=== PATIENT | male | born 1995 | race Caucasian/White ===

== ENCOUNTER 2016-12-03 10:42 | Outpatient (CLI) | payer OTHER | END 2016-12-03 10:43 | disposition critical access hospital (66) | LOC: EMS 10:42 | PROVIDERS: ATTEND Surgery | DX: R07.89 Other chest pain (principal); M79.621 Pain in right upper arm; T63.441A Toxic effect of venom of bees, accidental (unintentional), initial encounter | CPT/HCPCS: A0425; A0429 ==

== ENCOUNTER 2016-12-03 11:00 | Emergency (ER) | payer OTHER ==
[2016-12-03 11:06] VITALS: BP 134/70
[2016-12-03] MEDS ORDERED: CETIRIZINE 10 MG TABLET PO STA (11:14)
[2016-12-03] MEDS ORDERED: DEXAMETHASONE 10 MG/ML VIAL PO STA (11:14)
[2016-12-03] MEDS ORDERED: DEXAMETHASONE 10 MG/ML VIAL ONE (11:30)
[2016-12-03] MEDS ORDERED: CETIRIZINE 10 MG TABLET ONE (11:30)
--- NOTE | 2016-12-03 12:40 | ED Physician Documentation ---
History of Present Illness - Stated complaint Stated Complaint: BEE STING - Chief complaint Chief Complaint: Ext Problem - Additonal information Additional information: hx from pt hx anaphylaxis 2/2 bee stings stung R upper arm removed the stinger himself feared another severe rxn so called 911 mild SOA but no swelling no meds [employer] Review of Systems Constitutional: denies: Fever, Chills Throat: reports: Other (no oral swelling). denies: Sore throat Cardiac: denies: Chest pain / pressure Respiratory: reports: Dyspnea GI: denies: Abdominal Pain, Nausea, Vomiting Endocrine: denies: Easy bruising / bleeding Immunocompromised: denies: Immunocompromised PD PAST MEDICAL HISTORY - Past Medical History Neuro: Head injury Psych: ADD/ADHD - Past Surgical History Past Surgical History: Yes Ortho: Spine surgery - Present Medications Home Medications: Ambulatory Orders Medication Instructions Recorded Confirmed Cetirizine [ZyrTEC] 10 mg PO DAILY #3 tablet 12/03/16 Epinephrine [Epipen 2-Alonso] 0.3 mg IJ ONCE PRN #1 unit 12/03/16 predniSONE [Deltasone] 60 mg PO DAILY 3 Days 12/03/16 - Allergies Allergies/Adverse Reactions: Allergies Allergy/AdvReac Type Severity Reaction Status Date / Time No Known Drug Allergies Allergy Verified 11/10/15 11:26 - Social History Does the pt smoke?: No Smoking Status: Never smoker Does the pt drink ETOH?: No Does the pt have substance abuse?: No - Immunizations Immunizations are current?: Yes Immunizations: TDAP >10years/unknown - POLST Patient has POLST: No PD ED PE NORMAL - Vitals Vital signs reviewed: Yes - General General: Alert and oriented X 3 - HEENT HEENT: Other (no swelling) - Neck Neck: Supple, no meningeal sign - Cardiac Cardiac: RRR - Respiratory Respiratory: No respiratory distress, Clear bilaterally, Other (no wheeze) - Extremities Extremities: Other (focal erythema and swelling to upper outer R arm, no retained stinger) Results - Vitals Vitals: Vital Signs - 24 hr 12/03/16 11:04 Temperature 37.0 C Heart Rate 79 Respiratory 18 Rate Blood Pressure 134/70 H O2 Saturation 97 Oxygen O2 Source Room air PD MEDICAL DECISION MAKING - ED course ED course: not needing epi gave zyrtec and dex obs one hr not worsening Departure - Departure Disposition: 01 Home, Self Care Clinical Impression: Local reaction to bee sting Qualifiers: Encounter type: initial encounter Injury intent: accidental or unintentional Qualified Code(s): T63.441A - Toxic effect of venom of bees, accidental ( unintentional), initial encounter Condition: Good Instructions: ED Bite Sting Insect Local Allergic React Prescriptions: predniSONE [Deltasone] 60 mg PO DAILY 3 Days Epinephrine [Epipen 2-Alonso] 0.3 mg IJ ONCE PRN #1 unit PRN Reason: Anaphylaxis Cetirizine [ZyrTEC] 10 mg PO DAILY #3 tablet Comments: Thankfully this reaction did not result in anaphylaxis Take the non sedating antihistamine (zrtec) and the steroid (prednisone) for three days or until better i also wrote a prescription for an epi pen if you do not already have one And please follow up with your PMD to recheck your blood pressure - it was a little bit high today
== END 2016-12-03 12:50 | disposition home or self-care (01) ==
LOC: EDUNIT# → ED 11:00
DX: T63.441A Toxic effect of venom of bees, accidental (unintentional), initial encounter (principal); X58.XXXA Exposure to other specified factors, initial encounter; Z91.030 Bee allergy status; R03.0 Elevated blood-pressure reading, without diagnosis of hypertension
CPT/HCPCS: 99283; A9270

== ENCOUNTER 2022-02-19 15:17 | Emergency (ER) | payer OTHER, BC ==
--- NOTE | 2022-02-19 15:31 | ED Physician Documentation ---
History of Present Illness - Stated complaint Stated Complaint: FENT EXPOSURE - History obtained from History obtained from: Patient - Additonal information Additional information: This is a very nice 26-year-old male with no significant past medical history who presents after possible drug exposure. It is suspected that he was exposed to fentanyl so not entirely certain. 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 She apparently smoked just prior to him arriving there and there was residue and drug paraphernalia around her person. HeApparently had some residue on his vest jacket and also it was possibly around his face. He states he felt somewhat "weird" after exposure, had some mild chest pressure and just feels a little bit off. He has not had any shortness of breath or respiratory suppression, no confusion or alteration in mental status, no nausea or vomiting. He Went through the [place] shower and has changed out of his close since arriving to the hospital. Review of Systems Ten Systems: 10 systems reviewed and negative (Except as per HPI) PD PAST MEDICAL HISTORY - Past Medical History Past Medical History: No Psych: ADD/ADHD - Past Surgical History Past Surgical History: Yes Ortho: Spine surgery - Present Medications Home Medications: Ambulatory Orders Medication Instructions Recorded Confirmed Cetirizine [ZyrTEC] 10 mg PO DAILY #3 tablet 12/03/16 EPINEPHrine [Epipen 2-Alonso] 0.3 mg IJ ONCE PRN #1 unit 12/03/16 predniSONE [Deltasone] 60 mg PO DAILY 3 Days tablet 12/03/16 - Allergies Allergies/Adverse Reactions: Allergies Allergy/AdvReac Type Severity Reaction Status Date / Time No Known Drug Allergies Allergy Verified 02/19/22 15:31 - Social History Does the pt smoke?: No Smoking Status: Never smoker Does the pt drink ETOH?: No Does the pt have substance abuse?: No - Immunizations Immunizations are current?: Yes Immunizations: TDAP >10years/unknown - POLST Patient has POLST: No PD ED PE NORMAL - Vitals Vital signs reviewed: Yes - General General: Alert and oriented X 3, No acute distress, Well developed/nourished - HEENT HEENT: Atraumatic, Moist mucous membranes - Cardiac Cardiac: RRR, No murmur, No gallop, No rub, Strong equal pulses - Respiratory Respiratory: No respiratory distress, Clear bilaterally - Abdomen Abdomen: Normal bowel sounds, Soft, Non tender, Non distended - Derm Derm: Normal color, Warm and dry, No rash - Extremities Extremities: No deformity - Neuro Neuro: Alert and oriented X 3 Eye Opening: Spontaneous Motor: Obeys Commands Verbal: Oriented GCS Score: 15 - Psych Psych: Normal mood, Normal affect Results - Vitals Vitals: Vital Signs - 24 hr 02/19/22 02/19/22 15:26 15:39 Temperature 36.8 C Heart Rate 92 82 Respiratory 16 15 Rate Blood Pressure 169/96 H 162/102 H O2 Saturation 98 99 Oxygen O2 Source Room air - EKG (time done) No standard instances Rate: Rate (enter#) (84) Rhythm: NSR [place]: Normal Intervals: Normal [place] QRS: Normal Ischemia: Normal ST segments Compare to prior EKG: Old EKG unavailable Computer interpretation: Agree with computer PD MEDICAL DECISION MAKING - ED course Complexity details: considered differential, d/w patient ED course: This is a very nice 26-year-old male with no significant past medical history who presented after a possible exposure to fentanyl or other drug substance while he was responding to an overdose call. The patient had gone through the [employer] shower in head change clothes prior to my assessment. He is currently well-appearing with stable vital signs, no respiratory distress, no confusion. He does feel somewhat "drugged" and had some mild chest pressure. We obtained an EKG which is normal sinus rhythm. We monitored the patient in the ER with improvement of his symptoms which are suspected to be secondary to fentanyl exposure. He had no respiratory suppression. He Is stable for discharge home at this time but was advised to rest for the remainder of the day, avoid driving or operating heavy machinery or engaging in other activities or decision making that require your full attention. Anticipate complete improvement within the next several hours. Departure - Departure Disposition: 01 Home, Self Care Clinical Impression: Accidental drug ingestion Qualifiers: Encounter type: initial encounter Qualified Code(s): T50.901A - Poisoning by unspecified drugs, medicaments and biological substances, accidental (unintentional), initial encounter Condition: Good Instructions: ED Overdose Accidental Comments: You presented w/ an accidental drug exposure during your work duties, likely from fentanyl. We have monitored you in the ER with improvement in your symptoms and no signs of respiratory suppression. You are stable for discharge home at this time but recommend resting today, avoiding driving or operating other machinery today. The effects of the exposure should dissipate in the next few hours.
[2022-02-19 15:45] VITALS: BP 162/102
[2022-02-19 16:25] LABS: MUDS CUTOFF CONCENTRATIONS CUTOFF CONC BELOW:
[2022-02-19 16:41] LABS: AMPHETAMINE SCREEN,URINE NEGATIVE (NEGATIVE); BARBITURATE SCREEN,UR NEGATIVE (NEGATIVE); BENZODIAZEPINES SCREEN, URINE NEGATIVE (NEGATIVE); COCAINE SCREEN URINE NEGATIVE (NEGATIVE); METHADONE SCREEN, URINE NEGATIVE (NEGATIVE); METHAMPHETAMINES SCREEN, URINE NEGATIVE (NEGATIVE); OPIATE SCREEN, URINE NEGATIVE (NEGATIVE); OXYCODONE SCREEN, URINE NEGATIVE (NEGATIVE); PROPOXYPHENE SCREEN, URINE NEGATIVE (NEGATIVE); THC CANNABINOID SCREEN, URINE NEGATIVE (NEGATIVE); TRICYCLIC ANTIDEPRESSANT,URINE NEGATIVE (NEGATIVE)
== END 2022-02-19 16:50 | disposition home or self-care (01) ==
LOC: EDUNIT# → ED 15:17
DX: T50.901A Poisoning by unspecified drugs, medicaments and biological substances, accidental (unintentional), initial encounter (principal)
CPT/HCPCS: 1040M; 80306; 93005; 99281; 99283

== ENCOUNTER → 2022-02-19 | Outpatient (CLI) | payer OTHER, BC | END | disposition critical access hospital (66) | LOC: EMS 14:44 | DX: T50.901A Poisoning by unspecified drugs, medicaments and biological substances, accidental (unintentional), initial encounter (principal) | CPT/HCPCS: A0425; A0429 ==